=== PATIENT | female | born 1955 | race Caucasian/White ===

== ENCOUNTER 2019-06-04 14:36 | Outpatient (CLI) | payer BC ==
--- NOTE | 2019-06-04 16:15 | MRI ---
MRI cervical spine noncontrast HISTORY: Neck pain with radiculopathy on the right. FINDINGS: Vertebral body heights and alignment are maintained. Cervical spine final cord has a normal appearance without evidence of compression, expansion, or abnormal signal. Central canal and neural foramina are patent. Bone marrow signal within normal limits. 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 IMPRESSION: No significant abnormalities. No focal disc herniation or nerve root compression.
== END 2019-06-04 14:37 | disposition home or self-care (01) ==
LOC: SCSMRI 14:36
PROVIDERS: ATTEND Psychiatry & Neurology Neurology
DX: M54.12 Radiculopathy, cervical region (principal)
CPT/HCPCS: 72141

== ENCOUNTER 2020-05-29 12:18 | Outpatient (CLI) | payer MEDICARE, BC ==
[~2020-05-29 12:18] MED LIST: Iopamidol-370 76% 500 ML 1 ML ONE
--- NOTE | 2020-05-29 16:06 | CT ---
CT OF CHEST PERFORMED WITH IV CONTRAST ENHANCEMENT: Date: 05/29/2020 HISTORY: Chronic cough. Lung nodule. COMPARISON: 06/05/2016 study. FINDINGS: Lungs show some minimal reticular scarring in the bases. The subpleural nodule seen in the right lower lobe on the prior examination is not visualized on this exam. No pleural effusions. No infiltrative change. No significant mediastinal, hilar, or axillary adenopathy. Visualized liver parenchyma shows no focal findings. Right and left adrenal glands are unremarkable. IMPRESSION: 1. Some mild scarring in the lung bases. 2. The right lower lobe pulmonary nodule seen on the previous exam is not visualized on today's stud y. 3. Eventration of fat along the left hemidiaphragm again noted. POS: EUGENIA
== END 2020-05-29 12:19 | disposition home or self-care (01) ==
LOC: BICCT 12:18
PROVIDERS: ATTEND Otolaryngology Plastic Surgery within the Head & Neck
DX: R05 Cough (principal); J98.4 Other disorders of lung; R91.1 Solitary pulmonary nodule; J98.6 Disorders of diaphragm
CPT/HCPCS: 71260; 82565; Q9967

== ENCOUNTER 2020-10-06 13:25 | Observation (INO) | payer MEDICARE, BC ==
[2020-10-06] MEDS ORDERED: Adenosine 6 MG/2 ML VIAL ONE ×2 (13:32→13:33)
[2020-10-06 13:57] LABS: #Lymphocytes 2.4 thou/uL (1.20-3.40); #Monocytes 1.1 thou/uL (0.11-0.59); #Neutrophils 4.2 thou/uL (1.40-6.50); %Basophils 0.5 % (0.0-1.0); %Eosinophils 0.2 % (0.0-10.0); %Lymphocytes 30.9 % (21.0-51.0); %Monocytes 14.4 % (0.0-10.0); %Neutrophils 53.9 % (42.0-75.0); Mean Corpuscular Hemoglobin 31.5 pg (27.0-31.0); Mean Corpuscular Volume 92.8 fL (78.0-98.0); Mean Platelet Volume 7.7 fL (7.4-10.4); Platelet Count 257 thou/uL (130-400); Red Blood Cell (RBC) Count 5.06 mill/uL (4.20-5.40); White Blood Cell (WBC) Count 7.7 thou/uL (4.8-10.8)
--- NOTE | 2020-10-06 14:05 | RAD ---
XR Chest 1 View Portable History: Chest pain Comparison: None. Findings: Likely a left diaphragmatic hernia containing fat. Lungs are clear. No pneumothorax. No eff usion. Cardiac silhouette and mediastinal contours are within normal limits. Impression: No acute intrathoracic abnormality.
[2020-10-06 14:13] LABS: ALT (SGPT) 23 U/L (8-55); AST (SGOT) 27 U/L (5-34); Albumin 4.3 g/dL (3.4-4.8); Alkaline Phosphatase 108 U/L (40-110); Anion Gap 16 mmol/L (10-20); BUN (Urea Nitrogen) 10 mg/dL (9.8-20.1); Bilirubin, Total 0.6 mg/dL (0.2-1.2); Calc. Creatinine Clearance 0 mL/min (70-130); Calcium 9.3 mg/dL (7.8-10.44); Carbon Dioxide 19 mmol/L (23-31); Chloride 104 mmol/L (98-107); Globulin 2.9 g/dL (2.4-3.5); Glucose 160 mg/dL (80-115); Magnesium 2.1 mg/dL (1.6-2.6); Potassium 3.8 mmol/L (3.5-5.1); Protein, Total 7.2 g/dL (5.8-8.1); Sodium 135 mmol/L (136-145)
[2020-10-06] MEDS ORDERED: Aspirin Chewable 81 MG TAB ONE (15:02)
[2020-10-06 15:04] LABS: Bilirubin Negative (Negative); Blood, Urine Negative (Negative); Clarity Turbid (Clear); Glucose, Urine (Dipstick) Normal (Negative); Ketone, Urine 10 mg/dL (Negative); Leukocyte 500 Leu/uL (Negative); Nitrite Negative (Negative); Protein, Urine (Dipstick) Negative (Neg-Trace); RBC/HPF 0-3 HPF (0-3); Specific Gravity, Urine 1.008 (1.002-1.036); Squamous Epithelial 0-3 HPF (0-3); Urobilinogen Normal mg/dL (Less than 2); WBC/HPF Greater than 50 HPF (0-3)
[2020-10-06 15:12] LABS: Bacteria/HPF 1+ HPF (None Seen)
[2020-10-06] MEDS ORDERED: Ondansetron PF 4 MG/2 ML Vial IVP PRN (15:42)
[2020-10-06] MEDS ORDERED: Acetaminophen 325 MG TAB PO PRN (15:42)
[2020-10-06] MEDS ORDERED: Senokot S 8.6-50 MG TAB PO PRN (15:42)
[2020-10-06] MEDS ORDERED: Lidocaine 2% Viscous Solution 20 ML, Aluminum & Magnesium Hydroxide 30 ML, Donnatal Eli... SSW SCH (16:00)
[2020-10-06 16:30] LABS: Free T4 (Free Thyroxine) 1.24 ng/dL (0.70-1.48)
[2020-10-06 17:11] LABS: Troponin I 0.044 ng/mL (< 0.028)
[2020-10-06 18:10] VITALS: BMI 28.5
[2020-10-06] MEDS ORDERED: cefTRIAXone\\ROCEPHIN 1 GM in Sodium Chloride 0.9% 100 ML IVPB SCH (19:30)
[2020-10-06 20:12] LABS: Troponin I 0.051 ng/mL (< 0.028)
--- NOTE | 2020-10-06 20:37 | PDOC.HHP ---
Hospitalist HPI Palpitation History of Present Illness: Patient is a 65-year-old female with PMH of HLD, hypothyroidism, GERD, esopha geal spasm, and hx of recurrent genital herpes who presents to the ED with palpitation that started today. She reports associated lightheadedness/dizziness, and shortness of breath. Denies syncope. She is having indigestion after she took aspirin in the ED, otherwise no chest pain. No hx of arrhythmia. ED Course: Per report, on arrival to the ED patient was having SVT with HR in the 200's. Valsalva maneuver was performed, heart rate improved to 110's, the rhythm showed A. fib with RVR briefly, she then converted to sinus tachycardia spontaneously. No medication was given. Allergies/Adverse Reactions: Allergy/AdvReac Type Severity Reaction Status Date / Time NSAIDS (Non-Steroidal Allergy Mild Verified 10/06/20 18:00 Anti-Inflamma Sulfa (Sulfonamide Allergy Verified 10/06/20 18:00 Antibiotics) Home Medications: Medication Instructions Recorded Confirmed Type Atorvastatin Calcium 20 mg PO DAILY 10/06/20 10/06/20 History Cetirizine HCl [Zyrtec] 10 mg PO DAILY 10/06/20 10/06/20 History Estrogens, Conjugated [Premarin 30 gm FS Q7D 10/06/20 10/06/20 History Cream] Fluticasone Propionate 16 gm NS BID 10/06/20 10/06/20 History Ipratropium [place] 15 ml NS BID 10/06/20 10/06/20 History Lansoprazole 30 mg PO DAILY 10/06/20 10/06/20 History Levothyroxine Sodium 88 mcg PO DAILY 10/06/20 10/06/20 History [Levothyroxine] Mirabegron [Myrbetriq] 50 mg PO DAILY 10/06/20 10/06/20 History Montelukast Sodium 10 mg PO DAILY 10/06/20 10/06/20 History NIFEdipine [Nifedipine ER] 30 mg PO DAILY 10/06/20 10/06/20 History Raloxifene HCl 60 mg PO DAILY 10/06/20 10/06/20 History chlordiazePOXIDE/Clidinium Br 1 cap PO TID 10/06/20 10/06/20 History [Librax] valACYclovir HCl [ValTRex] 1 gm PO DAILY 10/06/20 10/06/20 History Past History: PMHx: HLD, hypothyroidism, GERD, esophageal spasm, and hx of recurrent genital herpes PSHx; esophageal stricture dilatation, left shoulder surgery FHx: Father: Heart disease mother: DM Social: She is a former smoker. Denies alcohol or drug use. Hospitalist HPI ROS Constitutional: denies: fever, chills Eyes: denies: vision change ENT: denies: throat pain Respiratory: reports: shortness of breath Cardiovascular: denies: chest pain Gastrointestinal: reports: nausea, other (Positive for indigestion). denies: vomiting, abdominal pain Genitourinary: denies: dysuria, frequency Skin: denies: rash Other: Positive for dizziness, negative for syncope or headache Hospitalist Exam Vitals: Vital Signs (12 hours) Temp Pulse Resp BP Pulse Ox 10/06/20 17:57 98.1 F 102 H 20 125/81 98 Weight Weight 161 lb 4.8 oz General Appearance: NAD, awake alert Eye: PERRL ENT: moist mucosa Neck: supple, no JVD Heart: no murmur Heart - other findings: Tachycardic, regular rhythm Respiratory: CTAB, no wheezes, no tachypnea Gastrointestinal: soft, non-tender, non-distended Extremities: no edema Neurological: normal sensation to touch, no weakness Musculoskeletal: normal strength Psychiatric: normal affect, A&O x 3 Hospitalist Results Result Diagrams: 10/06/20 13:40 10/06/20 13:40 Lab results: Laboratory Last Values WBC 7.7 thou/uL (4.8-10.8) 10/06/20 13:40 RBC 5.06 mill/uL (4.20-5.40) 10/06/20 13:40 Hgb 16.0 g/dL (12.0-16.0) 10/06/20 13:40 Hct 47.0 % (36.0-47.0) 10/06/20 13:40 MCV 92.8 fL (78.0-98.0) 10/06/20 13:40 MCH 31.5 pg (27.0-31.0) H 10/06/20 13:40 MCHC 34.0 g/dL (32.0-36.0) 10/06/20 13:40 RDW 12.0 % (11.5-14.5) 10/06/20 13:40 Plt Count 257 thou/uL (130-400) 10/06/20 13:40 MPV 7.7 fL (7.4-10.4) 10/06/20 13:40 Neutrophils % 53.9 % (42.0-75.0) 10/06/20 13:40 Lymphocytes % 30.9 % (21.0-51.0) 10/06/20 13:40 Monocytes % 14.4 % (0.0-10.0) H 10/06/20 13:40 Eosinophils % 0.2 % (0.0-10.0) 10/06/20 13:40 Basophils % 0.5 % (0.0-1.0) 10/06/20 13:40 Neutrophils # 4.2 thou/uL (1.40-6.50) 10/06/20 13:40 Lymphocytes # 2.4 thou/uL (1.20-3.40) 10/06/20 13:40 Monocytes # 1.1 thou/uL (0.11-0.59) H 10/06/20 13:40 Eosinophils # 0.0 thou/uL (0.0-0.7) 10/06/20 13:40 Basophils # 0.0 thou/uL (0.0-0.2) 10/06/20 13:40 D-Dimer 0.65 *mcg/mL (0.27-0.43) H 10/06/20 19:39 Sodium 135 mmol/L (136-145) L 10/06/20 13:40 Potassium 3.8 mmol/L (3.5-5.1) 10/06/20 13:40 Chloride 104 mmol/L (98-107) 10/06/20 13:40 Carbon Dioxide 19 mmol/L (23-31) L 10/06/20 13:40 Anion Gap 16 mmol/L (10-20) 10/06/20 13:40 BUN 10 mg/dL (9.8-20.1) 10/06/20 13:40 Creatinine 0.85 mg/dL (0.6-1.1) 10/06/20 13:40 Estimated GFR (MDRD) 67 10/06/20 13:40 Glucose 160 mg/dL (80-115) H 10/06/20 13:40 Calcium 9.3 mg/dL (7.8-10.44) 10/06/20 13:40 Magnesium 2.1 mg/dL (1.6-2.6) 10/06/20 13:40 Total Bilirubin 0.6 mg/dL (0.2-1.2) 10/06/20 13:40 AST 27 U/L (5-34) 10/06/20 13:40 ALT 23 U/L (8-55) 10/06/20 13:40 Alkaline Phosphatase 108 U/L (40-110) 10/06/20 13:40 Troponin I 0.051 ng/mL (< 0.028) H 10/06/20 19:39 Serum Total Protein 7.2 g/dL (5.8-8.1) 10/06/20 13:40 Albumin 4.3 g/dL (3.4-4.8) 10/06/20 13:40 Globulin 2.9 g/dL (2.4-3.5) 10/06/20 13:40 Albumin/Globulin Ratio 1.5 g/dL (1.2-2.2) 10/06/20 13:40 Free T4 1.24 ng/dL (0.70-1.48) 10/06/20 13:40 Free T3 2.03 pg/mL (1.71-3.71) 10/06/20 13:40 TSH 3rd Generation 0.9036 uIU/mL (0.35-4.94) 10/06/20 13:40 Urine Color Light-Yellow (Yellow) 10/06/20 14:45 Urine Clarity Turbid (Clear) A 10/06/20 14:45 Urine pH 6.0 (5.0-9.0) 10/06/20 14:45 Ur Specific [place] 1.008 (1.002-1.036) 10/06/20 14:45 Urine Protein Negative mg/dL (Neg-Trace) 10/06/20 14:45 Urine Glucose (UA) Normal mg/dL (Negative) 10/06/20 14:45 Urine Ketones 10 mg/dL (Negative) A 10/06/20 14:45 Urine Blood Negative (Negative) 10/06/20 14:45 Urine Nitrite Negative (Negative) 10/06/20 14:45 Urine Bilirubin Negative (Negative) 10/06/20 14:45 Urine Urobilinogen Normal mg/dL (Less than 2) 10/06/20 14:45 Ur Leukocyte Esterase 500 Mahnaz/uL (Negative) A 10/06/20 14:45 Urine RBC 0-3 HPF (0-3) 10/06/20 14:45 Urine WBC Greater than 50 HPF (0-3) A 10/06/20 14:45 Ur Squamous Epith Cells 0-3 HPF (0-3) 10/06/20 14:45 Urine Bacteria 1+ HPF (None Seen) A 10/06/20 14:45 Chest x-ray Status: image reviewed by me EKG Status: image reviewed by me Additional Comments: Sinus tachycardia with PVCs, RBBB. Vent rate: 122. Hospitalist H&P A/P (1) SVT (supraventricular tachycardia) Code(s): I47.1 - SUPRAVENTRICULAR TACHYCARDIA Status: Acute Assessment and Plan: Patient had an episode of SVT, resolved with Valsalva maneuver. She also had A fib rvr briefly, she then converted to Sinus tach. During my evaluation, HR was trending in the low 100's. D-dimer elevated. Free T4 and free T3 levels normal. Plan: -monitor on telemetry overnight -CTA chest -Echo (2) Elevated troponin Code(s): R77.8 - OTHER SPECIFIED ABNORMALITIES OF PLASMA PROTEINS Status: Acute Assessment and Plan: likely from demand ischemia due to tachycardia. Plan: -trend troponin (3) UTI (urinary tract infection) Status: Acute Qualifiers: Urinary tract infection type: acute cystitis Assessment and Plan: patient denies symptoms of UTI. Plan: -a dose of Ceftriaxone given -f/u urine Cx (4) Hypothyroidism Code(s): E03.9 - HYPOTHYROIDISM, UNSPECIFIED Status: Chronic Assessment and Plan: TSH, free T3 and free T4 normal PLan: -cont home meds (5) HLD (hyperlipidemia) Code(s): E78.5 - HYPERLIPIDEMIA, UNSPECIFIED Status: Chronic Assessment and Plan: -cont home med
[2020-10-06] MEDS ORDERED: ALPRAZolam 0.25 MG TAB PO SCH (21:00)
[2020-10-06] MEDS ORDERED: chlordiazePOXIDE/Clidinium Bromide Capsule PO SCH (21:00)
[2020-10-06] MEDS ORDERED: Atorvastatin Calcium 20 MG TAB PO SCH (21:00)
--- NOTE | 2020-10-06 21:14 | CT ---
Exam: CT angiogram of the chest HISTORY: Tachycardia. Elevated d-dimer. Atrial fibrillation. COMPARISON: CT angiogram of the aorta 06/05/2016 TECHNIQUE: CT angiogram of the chest is performed in the axial plane. Three-dimensional reformatted i mages are submitted for interpretation FINDINGS: Mediastinum: No mass, lymphadenopathy or hematoma. HEART: Normal size. No significant pericardial fluid. Aorta: Limited evaluation the aorta due to timing of contrast bolus. No evidence of dilatation. Upper solid abdominal viscera: No abnormality enhancement. Trachea and central bronchi: Patent Pleural spaces: No pleural effusion. 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 Lung parenchyma: Emphysematous changes are noted. There is irregular marginated semisolid nodule in t he posterior right upper lobe measuring 0.5 cm. Nodule is not present on the previous examination. Previously noted 0.8 x 0.5 cm nodule along the superior segment of the right lower lobe is not apprec iated. Regional smaller nodules are noted in the superior posterior right upper lobe. No suspicious or new nodules in the left lung. Pneumothorax: None Osseous structures: No lytic or blastic lesions Pulmonary arteries: Adequate contrast opacification pulmonary arterial system to the level of segment al arteries. No filling defect to suggest pulmonary embolism Incidentals: Enlarged left axillary lymph nodes. It Engineer lymph node measures 1.4 x 1.7 cm. IMPRESSION: 1. No evidence of pulmonary artery embolism to the level segmental arteries 2. Interval development of new nodules in the posterior superior right upper lobe. There is a semisol id slightly irregular nodule present, not appreciated on the prior exam. 3. Interval development of mildly enlarged left axillary lymph nodes. Code lung nodule
[2020-10-06] MEDS ORDERED: NIFEdipine XL 30 MG TAB PO SCH (21:30)
[2020-10-07 04:26] LABS: Hemoglobin A1c 5.5 % (4.0-6.0)
[2020-10-07 04:41] LABS: Anion Gap 14 mmol/L (10-20); BUN (Urea Nitrogen) 11 mg/dL (9.8-20.1); Calc. Creatinine Clearance 89 mL/min (70-130); Calcium 8.6 mg/dL (7.8-10.44); Carbon Dioxide 20 mmol/L (23-31); Chloride 108 mmol/L (98-107); Glucose 109 mg/dL (80-115); Magnesium 2.1 mg/dL (1.6-2.6); Potassium 3.8 mmol/L (3.5-5.1); Sodium 138 mmol/L (136-145)
[2020-10-07 05:48] LABS: Band 11 % (5-11); Eosinophils 1 % (0-10); Hemoglobin 13.9 g/dL (12.0-16.0); Lymphocytes 37 % (21-51); MDiff Complete? YES; Mean Corpuscular HGB CONC 33.5 g/dL (32.0-36.0); Mean Corpuscular Hemoglobin 31.3 pg (27.0-31.0); Mean Corpuscular Volume 93.3 fL (78.0-98.0); Mean Platelet Volume 8.5 fL (7.4-10.4); Monocytes 15 % (0-10); Myelocyte 1 % (0-0); Neutrophil 29 % (42-75); Platelet Count 218 thou/uL (130-400); RBC Distribution Width 12.1 % (11.5-14.5); Reactive Lymphocytes 6 % (0-10); Red Blood Cell (RBC) Count 4.43 mill/uL (4.20-5.40)
[2020-10-07] MEDS ORDERED: Levothyroxine Sodium 88 MCG TAB PO SCH (06:00)
[2020-10-07] MEDS ORDERED: chlordiazePOXIDE/Clidinium Bromide Capsule PO PRN (07:42)
[2020-10-07] MEDS ORDERED: Metoprolol Tartrate 25 MG TAB PO SCH (09:00)
[2020-10-07] MEDS ORDERED: NIFEdipine XL 30 MG TAB PO SCH (09:00)
[2020-10-07] MEDS ORDERED: FLU VACC QS2020-21(65YR UP)/PF 240 MCG/0.7 ML SYRINGE IM ONE (09:00)
--- NOTE | 2020-10-07 09:32 | PDOC.HOSPP ---
- Subjective Encounter Date: 10/07/20 - Objective Vital Signs & Weight: Vital Signs (12 hours) Temp Pulse Resp BP Pulse Ox 10/07/20 08:35 98.1 F 99 16 116/78 96 10/07/20 04:00 97.8 F 98 16 108/72 96 10/06/20 22:15 97.7 F 100 20 157/82 H 94 L Weight Weight 161 lb 4.8 oz I&O: 10/06/20 10/07/20 10/08/20 06:59 06:59 06:59 Intake Total 1100 Output Total 1000 Balance 100 Result Diagrams: 10/07/20 03:33 10/07/20 03:33 Hospitalist ROS - Medication Medications: Active Medications Generic Name Dose Route Start Last Admin Trade Name Freq PRN Reason Stop Dose Admin Atorvastatin Calcium 20 mg 10/06/20 21:00 10/06/20 22:11 Atorvastatin Calcium 20 Mg Tab PO 20 mg HS DOMENICO Administration Chlordiazepoxide/Clidinium 1 cap 10/07/20 07:42 10/07/20 08:41 Chlordiazepoxide/Clidinium [place] Capsule PO 1 cap TIDPRN PRN Administration Agitation Levothyroxine Sodium 88 mcg 10/07/20 06:00 10/07/20 05:23 Levothyroxine Sodium 88 Mcg Tab PO 88 mcg 0600 DOMENICO Administration Metoprolol Tartrate 25 mg 10/07/20 09:00 10/07/20 08:40 Metoprolol Tartrate 25 Mg Tab PO 25 mg BID DOMENICO Administration Nifedipine 30 mg 10/07/20 09:00 10/07/20 08:40 Nifedipine Xl 30 Mg Tab PO Not Given DAILY DOMENICO Pantoprazole Sodium 40 mg 10/07/20 09:00 10/07/20 08:40 Pantoprazole 40 Mg Tab PO 40 mg DAILY DOMENICO Administration Hospitalist Exam Vitals: Vital Signs (12 hours) Temp Pulse Resp BP Pulse Ox 10/07/20 08:35 98.1 F 99 16 116/78 96 10/07/20 04:00 97.8 F 98 16 108/72 96 10/06/20 22:15 97.7 F 100 20 157/82 H 94 L Weight Weight 161 lb 4.8 oz Hosp A/P - Plan Hospitalist H&P A/P (1) SVT (supraventricular tachycardia) Code(s): I47.1 - SUPRAVENTRICULAR TACHYCARDIA Status: Acute Assessment and Plan: Patient had an episode of SVT, resolved with Valsalva maneuver. She also had A fib rvr briefly, she then converted to Sinus tach. During my evaluation, HR was trending in the low 100's. D-dimer elevated. Free T4 and free T3 levels normal. Plan: -monitor on telemetry overnight -CTA chest -Echo (2) Elevated troponin Code(s): R77.8 - OTHER SPECIFIED ABNORMALITIES OF PLASMA PROTEINS Status: Acute Assessment and Plan: likely from demand ischemia due to tachycardia. Plan: -trend troponin (3) UTI (urinary tract infection) Status: Acute Qualifiers: Urinary tract infection type: acute cystitis Assessment and Plan: patient denies symptoms of UTI. Plan: -a dose of Ceftriaxone given -f/u urine Cx (4) Hypothyroidism Code(s): E03.9 - HYPOTHYROIDISM, UNSPECIFIED Status: Chronic Assessment and Plan: TSH, free T3 and free T4 normal PLan: -cont home meds (5) HLD (hyperlipidemia) Code(s): E78.5 - HYPERLIPIDEMIA, UNSPECIFIED Status: Chronic Assessment and Plan: -cont home med
[2020-10-07 09:37] LABS: SARS-CoV-2 PCR by NAA Not Detected (NotDetected)
--- NOTE | 2020-10-07 10:02 | PDOC.DS.DS ---
Provider Date of Admission: 10/06/20 15:08 Date of Discharge: 10/07/20 Admitting Provider: Deny Vickers MD Primary Care Physician: Alistair Trent MD Course Hospital Course: History of Present Illness: Patient is a 65-year-old female with PMH of HLD, hypothyroidism, GERD, esophageal spasm, and hx of recurrent genital herpes who presents to the ED with palpitation that started today. She reports associated lighthead edness/dizziness, and shortness of breath. Denies syncope. She is having indigestion after she took aspirin in the ED, otherwise no chest pain. No hx of arrhythmia. ED Course: Per report, on arrival to the ED patient was having SVT with HR in the 200's. Valsalva maneuver was performed, heart rate improved to 110's, the rhythm showed A. fib with RVR briefly, she then converted to sinus tachycardia spontaneously. No medication was given. The patient was observed overnight with no recurrence of her arrhythmia. She was started on metoprolol titrate 25 mg orally twice daily. Echocardiogram revealed preserved EF with mild diastolic dysfunction. Her case was discussed with cardiology and they recommended outpatient follow-up with EP within 1 to 2 weeks. The patient is urine analysis was suggestive of UTI, however the patient was asymptomatic. She received ceftriaxone in the ER but no antibiotics will be prescribed on discharge as the patient is asymptomatic and without signs of sepsis. This is likely represent asymptomatic bacteriuria. Resuscitation Status: 10/06/20 15:42 Resuscitation Status Routine Resuscitation Status: FULL: Full Resuscitation Discussed with: patient Lab Results: 10/07/20 03:33 10/07/20 03:33 Abnormal Lab Results - Last 48 hrs 10/06/20 13:40: MCH 31.5 H, Monocytes % 14.4 H, Monocytes # 1.1 H 10/06/20 13:40: Sodium 135 L, Carbon Dioxide 19 L 10/06/20 14:45: Urine Clarity Turbid A, Urine Ketones 10 A, Ur Leukocyte Esterase 500 A, Urine WBC Greater than 50 A, Urine Bacteria 1+ A 10/06/20 16:38: Troponin I 0.044 H 10/06/20 19:39: Troponin I 0.051 H 10/06/20 19:39: D-Dimer 0.65 H 10/07/20 03:33: Chloride 108 H, Carbon Dioxide 20 L 10/07/20 03:33: MCH 31.3 H, Neutrophils % (Manual) 29 L, Monocytes % (Manual) 15 H, Myelocytes % 1 H Microbiology - Entire Visit 10/06/20 14:45 Urine voided Urine Culture - Preliminary Vitals: Vital Signs (12 hours) Temp Pulse Resp BP Pulse Ox 10/07/20 08:35 98.1 F 99 16 116/78 96 10/07/20 04:00 97.8 F 98 16 108/72 96 10/06/20 22:15 97.7 F 100 20 157/82 H 94 L Weight Weight 161 lb 4.8 oz Physical Exam: The patient was seen and examined on the day of discharge. Problem (1) Elevated troponin Code(s): R77.8 - OTHER SPECIFIED ABNORMALITIES OF PLASMA PROTEINS Status: Acute Plan: This is likely due to demand ischemia from her SVT episode. (2) SVT (supraventricular tachycardia) Code(s): I47.1 - SUPRAVENTRICULAR TACHYCARDIA Status: Acute (3) UTI (urinary tract infection) Status: Acute Qualifiers: Urinary tract infection type: acute cystitis Plan: Asymptomatic. (4) HLD (hyperlipidemia) Code(s): E78.5 - HYPERLIPIDEMIA, UNSPECIFIED Status: Chronic (5) Hypothyroidism Code(s): E03.9 - HYPOTHYROIDISM, UNSPECIFIED Status: Chronic Plan Prescriptions: Metoprolol Tartrate 25 mg PO BID #60 tab Home Medications: Medication Instructions Recorded Confirmed Type Atorvastatin Calcium 20 mg PO DAILY 10/06/20 10/06/20 History Cetirizine HCl [Zyrtec] 10 mg PO DAILY 10/06/20 10/06/20 History Estrogens, Conjugated [Premarin 30 gm FS Q7D 10/06/20 10/06/20 History Cream] Fluticasone Propionate 16 gm NS BID 10/06/20 10/06/20 History Ipratropium [place] 15 ml NS BID 10/06/20 10/06/20 History Lansoprazole 30 mg PO DAILY 10/06/20 10/06/20 History Levothyroxine Sodium 88 mcg PO DAILY 10/06/20 10/06/20 History [Levothyroxine] Mirabegron [Myrbetriq] 50 mg PO DAILY 10/06/20 10/06/20 History Montelukast Sodium 10 mg PO DAILY 10/06/20 10/06/20 History NIFEdipine [Nifedipine ER] 30 mg PO DAILY 10/06/20 10/06/20 History Raloxifene HCl 60 mg PO DAILY 10/06/20 10/06/20 History chlordiazePOXIDE/Clidinium Br 1 cap PO TID 10/06/20 10/06/20 History [Librax] valACYclovir HCl [Valtrex] 1 gm PO DAILY 10/06/20 10/06/20 History Metoprolol Tartrate 25 mg PO BID #60 tab 10/07/20 Rx Allergies: NSAIDS (Non-Steroidal Anti-Inflamma Allergy (Mild, Verified 10/06/20 18:00) INDIGESTION Sulfa (Sulfonamide Antibiotics) Allergy (Verified 10/06/20 18:00) Activity:: Activity as Tolerated Referrals: Alistair Trent MD [Primary Care Provider] - 7 Days (CALL OFFICE TO SCHEDULE APPOINTMENT) Philip Nolasco MD [Active] - 2-3 Weeks (CALL OFFICE TO SCHEDULE APPOINTMENT TO ESTABLISH CARE) Disposition: HOME Quality CORE MEASURES:: N/A
[2020-10-07 11:54] VITALS: BP 108/72; TEMP 98.3
[2020-10-07] MEDS ORDERED: cefTRIAXone\\ROCEPHIN 1 GM in Sodium Chloride 0.9% 100 ML IVPB SCH (21:00)
[2020-10-08] MEDS ORDERED: Levothyroxine Sodium 88 MCG TAB PO SCH (06:00)
== END 2020-10-07 15:05 | disposition home or self-care (01) ==
LOC: ERS 13:25 → 2NO 15:08
PROVIDERS: ADMIT Internal Medicine; ATTEND Internal Medicine
DX: R00.2 Palpitations (principal); R77.8 Other specified abnormalities of plasma proteins; I47.1 Supraventricular tachycardia; N30.00 Acute cystitis without hematuria; E78.5 Hyperlipidemia, unspecified; E03.9 Hypothyroidism, unspecified; F41.9 Anxiety disorder, unspecified; G47.00 Insomnia, unspecified; K21.9 Gastro-esophageal reflux disease without esophagitis; E78.00 Pure hypercholesterolemia, unspecified; Z87.891 Personal history of nicotine dependence; Z79.810 Long term (current) use of selective estrogen receptor modulators (SERMs); Z79.899 Other long term (current) drug therapy; Z88.2 Allergy status to sulfonamides; Z88.6 Allergy status to analgesic agent; Z20.822 Contact with and (suspected) exposure to COVID-19
CPT/HCPCS: 71045; 71275; 80048; 83036; 83735 ×2; 84439; 84481; 84484 ×2; 85025; 85379; 87086; 93005; 93306; 99285; U0003; U0005; 36415; 36416; 80053; 81003; 81015; 84443; 87635; 96374; G0378; J0153; J0696; J3490; Q9967

== ENCOUNTER 2020-10-17 14:48 | Outpatient (CLI) | payer MEDICARE, BC | END 2020-10-17 14:49 | disposition home or self-care (01) | LOC: BICMAMMO 14:48 | PROVIDERS: ATTEND Family Medicine | DX: Z12.31 Encounter for screening mammogram for malignant neoplasm of breast (principal); M85.89 Other specified disorders of bone density and structure, multiple sites; Z91.89 Other specified personal risk factors, not elsewhere classified; Z80.3 Family history of malignant neoplasm of breast | CPT/HCPCS: 77063; 77067; 77080 ==

== ENCOUNTER 2020-11-13 14:58 | Outpatient (CLI) | payer MEDICARE, BC ==
[2020-11-13 16:31] LABS: Hemoglobin 15.1 g/dL (12.0-15.5); Mean Corpuscular HGB CONC 33.5 g/dL (32.0-36.0); Mean Corpuscular Hemoglobin 31.3 pg (27.0-33.0); Mean Corpuscular Volume 93.4 fl (81.6-98.3); Mean Platelet Volume 10.3 fl (7.4-10.4); Platelet Count 324 10x3/uL (150-450); Red Blood Cell (RBC) Count 4.83 10x6/uL (3.90-5.03); White Blood Cell (WBC) Count 7.9 10x3/uL (3.5-10.5)
[2020-11-13 16:50] LABS: Anion Gap 16 mmol/L (10-20); BUN (Urea Nitrogen) 11 mg/dL (9.8-20.1); Calc. Creatinine Clearance 0 mL/min (70-130); Calcium 9.8 mg/dL (7.8-10.44); Carbon Dioxide 25 mmol/L (23-31); Chloride 104 mmol/L (98-107); Glucose 115 mg/dL (80-115); Potassium 4.5 mmol/L (3.5-5.1); Sodium 140 mmol/L (136-145)
[2020-11-13 17:03] LABS: Prothrombin Time 10.9 sec (9.5-12.1)
[2020-11-14 04:20] LABS: SARS-CoV-2 PCR by NAA Not Detected (NotDetected)
== END 2020-11-13 14:59 | disposition home or self-care (01) ==
LOC: LABBT 14:58
PROVIDERS: ATTEND Internal Medicine Cardiovascular Disease
DX: Z01.812 Encounter for preprocedural laboratory examination (principal); I47.1 Supraventricular tachycardia; Z20.822 Contact with and (suspected) exposure to COVID-19
CPT/HCPCS: 80048; 85027; 85610; U0003; U0005; 87635

== ENCOUNTER 2020-11-16 06:20 | Day surgery (SDC) | payer MEDICARE, BC ==
[2020-11-15 14:31] VITALS: BMI 28.3
[2020-11-16] MEDS ORDERED: Heparin 10,000 UNITS/ 10 ML VIAL ONE (06:39)
[2020-11-16] MEDS ORDERED: Lidocaine 1% (PF) 30 ML VIAL ONE (06:40)
[2020-11-16] MEDS ORDERED: Fentanyl 100 MCG/2 ML VIAL ONE ×2 (06:50→10:34)
[2020-11-16] MEDS ORDERED: Midazolam HCl 2 mg/2 ml Vial ONE (06:50)
[2020-11-16] MEDS ORDERED: Ketamine 50 MG/ML (10ML VIAL) ONE (06:51)
[2020-11-16] MEDS ORDERED: Propofol 500 MG/50 ML VIAL ONE (06:51)
[2020-11-16] MEDS ORDERED: PROPOFOL 200 MG/20 ML VIAL ONE (07:08)
[2020-11-16] MEDS ORDERED: Phenylephrine 10 MG/ML VIAL ONE (07:11)
[2020-11-16] MEDS ORDERED: Propofol 1,000 MG/100 ML VIAL IV ONE (08:09)
[2020-11-16] MEDS ORDERED: Isoproterenol 0.2 MG/1 ML AMP ONE (08:32)
== END 2020-11-16 14:26 | disposition home or self-care (01) ==
LOC: CCL 06:20
PROVIDERS: ATTEND Internal Medicine Cardiovascular Disease
PROC: 02583ZZ Destruction of Conduction Mechanism, Percutaneous Approach (ICD-10-PCS; principal; 2020-11-16)
PROC: 02K83ZZ Map Conduction Mechanism, Percutaneous Approach (ICD-10-PCS; 2020-11-16)
PROC: 4A023FZ Measurement of Cardiac Rhythm, Percutaneous Approach (ICD-10-PCS; 2020-11-16)
PROC: 4A0234Z Measurement of Cardiac Electrical Activity, Percutaneous Approach (ICD-10-PCS; 2020-11-16)
DX: I47.1 Supraventricular tachycardia (principal); I48.3 Typical atrial flutter; I48.0 Paroxysmal atrial fibrillation; I45.10 Unspecified right bundle-branch block; E03.9 Hypothyroidism, unspecified; E78.5 Hyperlipidemia, unspecified; K21.9 Gastro-esophageal reflux disease without esophagitis; Z87.891 Personal history of nicotine dependence; Z79.899 Other long term (current) drug therapy; Z88.2 Allergy status to sulfonamides; Z88.6 Allergy status to analgesic agent
CPT/HCPCS: 76942; 93005; 93613; 93621; 93623; 93653; 93655; C1730; C1731; C2630; J1644; J2001; J2250; J2370; J2704; J3010

== ENCOUNTER 2021-08-18 11:27 | Emergency (ER) | payer MEDICARE, BC ==
[2021-08-18] MEDS ORDERED: Aspirin Chewable 81 MG TAB ONE (11:51)
[2021-08-18] MEDS ORDERED: Nitroglycerin 0.4 MG TAB 1 EACH ONE (11:51)
[2021-08-18 11:58] LABS: #Basophils 0.1 thou/uL (0.0-0.2); #Eosinphils 0.1 thou/uL (0.0-0.7); #Lymphocytes 3.4 thou/uL (1.20-3.40); #Monocytes 0.6 thou/uL (0.11-0.59); #Neutrophils 3.7 thou/uL (1.40-6.50); %Basophils 0.6 % (0.0-1.0); %Eosinophils 1.5 % (0.0-10.0); %Lymphocytes 42.7 % (21.0-51.0); %Monocytes 8.2 % (0.0-10.0); %Neutrophils 47.1 % (42.0-75.0); Hemoglobin 15.2 g/dL (12.0-16.0); Mean Corpuscular HGB CONC 34.9 g/dL (32.0-36.0); Mean Corpuscular Volume 97.2 fL (78.0-98.0); Mean Platelet Volume 7.4 fL (7.4-10.4); Platelet Count 344 thou/uL (130-400); RBC Distribution Width 11.8 % (11.5-14.5); Red Blood Cell (RBC) Count 4.49 mill/uL (4.20-5.40); White Blood Cell (WBC) Count 7.9 thou/uL (4.8-10.8)
[2021-08-18 12:32] LABS: ALT (SGPT) 19 U/L (8-55); AST (SGOT) 36 U/L (5-34); Albumin 4.2 g/dL (3.4-4.8); Alkaline Phosphatase 102 U/L (40-110); Anion Gap 15 mmol/L (10-20); BUN (Urea Nitrogen) 9 mg/dL (9.8-20.1); Bilirubin, Total 0.5 mg/dL (0.2-1.2); Calc. Creatinine Clearance 0 mL/min (70-130); Carbon Dioxide 21 mmol/L (23-31); Chloride 106 mmol/L (98-107); Globulin 3.7 g/dL (2.4-3.5); Glucose 106 mg/dL (80-115); Protein, Total 7.9 g/dL (5.8-8.1); Sodium 136 mmol/L (136-145)
[2021-08-18 13:36] LABS: ALT (SGPT) 12 U/L (8-55); AST (SGOT) 16 U/L (5-34); Albumin 3.9 g/dL (3.4-4.8); Alkaline Phosphatase 92 U/L (40-110); Anion Gap 12 mmol/L (10-20); BUN (Urea Nitrogen) 9 mg/dL (9.8-20.1); Bilirubin, Total 0.5 mg/dL (0.2-1.2); Calc. Creatinine Clearance 0 mL/min (70-130); Calcium 9.3 mg/dL (7.8-10.44); Carbon Dioxide 22 mmol/L (23-31); Chloride 110 mmol/L (98-107); Globulin 2.6 g/dL (2.4-3.5); Glucose 96 mg/dL (80-115); Potassium 3.6 mmol/L (3.5-5.1); Protein, Total 6.5 g/dL (5.8-8.1); Sodium 140 mmol/L (136-145)
[2021-08-18] MEDS ORDERED: Albuterol Sulfate 2.5 mg/0.5 ml Neb ONE (14:02)
[2021-08-18 14:18] LABS: Magnesium 1.9 mg/dL (1.6-2.6)
== END 2021-08-18 15:52 | disposition home or self-care (01) ==
LOC: ERS 11:27
DX: R07.89 Other chest pain (principal); E03.9 Hypothyroidism, unspecified; E78.00 Pure hypercholesterolemia, unspecified; I48.91 Unspecified atrial fibrillation; Z79.899 Other long term (current) drug therapy
CPT/HCPCS: 36415; 71045; 80053; 83735; 84484; 85025; 93005; 94760; J7611

== ENCOUNTER 2022-05-07 08:39 | Outpatient (CLI) | payer MEDICARE, BC | END 2022-05-07 08:40 | disposition home or self-care (01) | LOC: BICMAMMO 08:39 | PROVIDERS: ATTEND Family Medicine | DX: Z12.31 Encounter for screening mammogram for malignant neoplasm of breast (principal); Z80.3 Family history of malignant neoplasm of breast; Z91.89 Other specified personal risk factors, not elsewhere classified | CPT/HCPCS: 77063; 77067 ==

== ENCOUNTER 2023-06-25 12:47 | Outpatient (CLI) | payer MEDICARE, BC | END 2023-06-25 12:48 | disposition home or self-care (01) | LOC: BICMAMMO 12:47 | PROVIDERS: ATTEND Family Medicine | DX: Z12.31 Encounter for screening mammogram for malignant neoplasm of breast (principal); Z80.3 Family history of malignant neoplasm of breast; Z91.89 Other specified personal risk factors, not elsewhere classified | CPT/HCPCS: 77063; 77067 ==

== ENCOUNTER 2023-09-18 13:43 | Outpatient (CLI) | payer MEDICARE | END 2023-09-18 13:44 | disposition home or self-care (01) | LOC: BICMAMMO 13:43 | PROVIDERS: ATTEND Family Medicine | DX: Z13.820 Encounter for screening for osteoporosis (principal); N95.9 Unspecified menopausal and perimenopausal disorder; M81.0 Age-related osteoporosis without current pathological fracture; M85.851 Other specified disorders of bone density and structure, right thigh; M85.852 Other specified disorders of bone density and structure, left thigh | CPT/HCPCS: 77080 ==

== ENCOUNTER 2024-04-15 18:48 | Observation (INO) | payer BC, MEDICARE ==
[2024-04-15] MEDS ORDERED: Aspirin Chewable 81 MG TAB ONE (19:42)
[2024-04-15 20:04] LABS: #Basophils Less than 0.03 10x3/uL (0.0-0.2); %Basophils 0.2 % (0.0-1.0); %Eosinophils 0.7 % (0.0-10.0); %Lymphocytes 31.8 % (21.0-51.0); %Neutrophils 57.1 % (42.0-75.0); Hematocrit 40.2 % (36.0-47.0); Hemoglobin 14.1 g/dL (12.0-16.0); Mean Corpuscular HGB CONC 35.1 g/dL (32.0-36.0); Mean Corpuscular Volume 91.4 fL (78.0-98.0); Mean Platelet Volume 10.1 fL (7.4-10.4); Platelet Count 287 10x3/uL (130-400); RBC Distribution Width 12.5 % (11.5-14.5)
[2024-04-15 20:22] LABS: ALT (SGPT) 14 U/L (8-55); AST (SGOT) 19 U/L (5-34); Albumin 3.6 g/dL (3.4-4.8); Alkaline Phosphatase 76 U/L (40-110); Anion Gap 14 mmol/L (10-20); BUN (Urea Nitrogen) 12 mg/dL (9.8-20.1); Bilirubin, Total 0.4 mg/dL (0.2-1.2); Calc. Creatinine Clearance 0 mL/min (70-130); Calcium 9.7 mg/dL (7.8-10.44); Carbon Dioxide 25 mmol/L (23-31); Chloride 105 mmol/L (98-107); Estimated GFR 95; Globulin 2.9 g/dL (2.4-3.5); Glucose 92 mg/dL (80-115); Lipase 27 U/L (8-78); Potassium 4.5 mmol/L (3.5-5.1); Protein, Total 6.5 g/dL (5.8-8.1); Sodium 139 mmol/L (136-145)
[2024-04-15 20:26] LABS: Troponin I Less than 0.010 ng/mL (< 0.028)
[2024-04-15] MEDS ORDERED: Lorazepam 1 MG TAB ONE (23:04)
[2024-04-15 23:52] LABS: Troponin I 0.011 ng/mL (< 0.028)
[2024-04-16 00:46] VITALS: BMI 20.4
[2024-04-16] MEDS ORDERED: Acetaminophen 650 MG Suppository PR PRN (01:20)
[2024-04-16] MEDS ORDERED: Acetaminophen 325 MG TAB PO PRN (01:20)
[2024-04-16] MEDS ORDERED: Ondansetron ODT 4 MG TAB PO PRN (01:20)
[2024-04-16] MEDS ORDERED: Ondansetron PF 4 MG/2 ML Vial IVP PRN (01:20)
[2024-04-16] MEDS ORDERED: Nitroglycerin 0.4 MG TAB (25 Tab Bottle) SL PRN (01:22)
[2024-04-16] MEDS: Calcium Carbonate 500 MG ChewTAB PO SCH (01:45)
[2024-04-16] MEDS: Pantoprazole 40 MG VIAL IVP SCH ×2 (01:45→08:07)
[2024-04-16 02:49] LABS: #Basophils Less than 0.03 10x3/uL (0.0-0.2); %Basophils 0.2 % (0.0-1.0); %Eosinophils 0.6 % (0.0-10.0); %Lymphocytes 35.4 % (21.0-51.0); %Monocytes 10.1 % (0.0-10.0); %Neutrophils 53.4 % (42.0-75.0); Hematocrit 41.6 % (36.0-47.0); Mean Corpuscular HGB CONC 33.7 g/dL (32.0-36.0); Mean Corpuscular Hemoglobin 32.4 pg (27.0-31.0); Mean Corpuscular Volume 96.3 fL (78.0-98.0); Platelet Count 265 10x3/uL (130-400); RBC Distribution Width 12.6 % (11.5-14.5); Red Blood Cell (RBC) Count 4.32 mill/uL (4.20-5.40)
[2024-04-16 04:14] LABS: Anion Gap 18 mmol/L (10-20); BUN (Urea Nitrogen) 12 mg/dL (9.8-20.1); Calc. Creatinine Clearance 67 mL/min (70-130); Calcium 9.5 mg/dL (7.8-10.44); Carbon Dioxide 15 mmol/L (23-31); Chloride 109 mmol/L (98-107); Estimated GFR 96; Glucose 81 mg/dL (80-115); Sodium 138 mmol/L (136-145)
[2024-04-16 04:23] LABS: Troponin I Less than 0.010 ng/mL (< 0.028)
[2024-04-16] MEDS: Aspirin Chewable 81 MG TAB PO SCH (08:06)
[2024-04-16] MEDS: Raloxifene 60 MG TAB PO SCH (08:17)
[2024-04-16] MEDS: Loratadine 10 MG TAB PO SCH (08:17)
[2024-04-16] MEDS: Levothyroxine Sodium 88 MCG TAB PO SCH (08:19)
[2024-04-16] MEDS: valACYclovir 500 MG TAB PO SCH (08:23)
[2024-04-16] MEDS ORDERED: Ipratropium Bromide 0.06% Nasal Inhaler 15ml EA NARE SCH (09:00)
[2024-04-16] MEDS ORDERED: Fluticasone Propionate Nasal Spray 16 gm Bottle NASAL SCH (09:00)
[2024-04-16] MEDS ORDERED: valACYclovir 500 MG TAB PO SCH (09:00)
[2024-04-16 09:20] VITALS: TEMP 97.2
[2024-04-16 09:37] VITALS: BP 93/63
[2024-04-16] MEDS ORDERED: Regadenoson 0.4 MG/5 ML SYRINGE ONE (11:06)
[2024-04-16] MEDS ORDERED: Atorvastatin Calcium 20 MG TAB PO SCH (21:00)
[2024-04-16] MEDS ORDERED: traZODone HCl 50 MG TAB PO SCH (21:00)
[2024-04-17] MEDS ORDERED: Levothyroxine Sodium 88 MCG TAB PO SCH (06:00)
== END 2024-04-16 15:51 | disposition home or self-care (01) ==
LOC: ERS 18:48 → 2SW 22:43
PROVIDERS: ADMIT Student in an Organized Health Care Education/Training Program; ATTEND Internal Medicine
PROC: B246ZZZ Ultrasonography of Right and Left Heart (ICD-10-PCS; principal; 2024-04-15)
DX: R07.89 Other chest pain (principal); I50.30 Unspecified diastolic (congestive) heart failure; E78.2 Mixed hyperlipidemia; E03.9 Hypothyroidism, unspecified; K21.9 Gastro-esophageal reflux disease without esophagitis; I48.91 Unspecified atrial fibrillation; Z88.2 Allergy status to sulfonamides; Z88.6 Allergy status to analgesic agent; Z79.890 Hormone replacement therapy; Z79.899 Other long term (current) drug therapy; Z79.82 Long term (current) use of aspirin
CPT/HCPCS: 71045; 78452; 80048; 80053; 83690; 83880; 84484 ×3; 85025 ×2; 85379; 93005; 93017; 93306; 94760; 99285; A9502; J2470; J2785 ×2; 36415; 96374; 96376; G0378

== ENCOUNTER 2024-06-29 11:10 | Outpatient (CLI) | payer MEDICARE | END 2024-06-29 11:11 | disposition home or self-care (01) | LOC: BICMAMMO 11:10 | PROVIDERS: ATTEND Family Medicine | DX: Z12.31 Encounter for screening mammogram for malignant neoplasm of breast (principal); Z80.3 Family history of malignant neoplasm of breast; Z91.89 Other specified personal risk factors, not elsewhere classified | CPT/HCPCS: 77063; 77067 ==

== ENCOUNTER 2024-07-22 17:47 | Observation (INO) | payer MEDICARE ==
[2024-07-22] MEDS ORDERED: Acetaminophen 500 MG TAB ONE (18:14)
[2024-07-22] MEDS ORDERED: Aspirin Chewable 81 MG TAB ONE (18:15)
[2024-07-22] MEDS ORDERED: Heparin 10,000 UNITS/ 10 ML VIAL ONE (18:35)
[2024-07-22] MEDS ORDERED: EPINEPHrine 1 MG/10 ML Abboject SYRINGE ONE (18:35)
[2024-07-22] MEDS ORDERED: Atropine Sulfate 1 mg/10 ml Syringe ONE (18:35)
[2024-07-22] MEDS ORDERED: Nitroglycerin 50 MG/250 ML BOT 0 ML ONE (18:35)
[2024-07-22] MEDS ORDERED: PHENYLEPHRINE-NS 100 MCG/ML 10 ML SYRINGE ONE (18:38)
[2024-07-22] MEDS ORDERED: Ketorolac Tromethamine 30 MG (1 mL) VIAL ONE (18:44)
[2024-07-22 22:19] LABS: Troponin I Less than 0.010 ng/mL (< 0.028)
[2024-07-22] MEDS ORDERED: Acetaminophen 325 MG TAB PO PRN (22:29)
[2024-07-22] MEDS ORDERED: traMADol HCl 50 MG TAB PO PRN (22:29)
[2024-07-22] MEDS ORDERED: Senokot S 8.6-50 MG TAB PO PRN (22:29)
[2024-07-22] MEDS ORDERED: Ondansetron PF 4 MG/2 ML Vial IVP PRN (22:29)
[2024-07-22] MEDS ORDERED: Nitroglycerin 0.4 MG TAB (25 Tab Bottle) SL PRN (22:32)
[2024-07-22] MEDS ORDERED: Famotidine 20 MG TAB ONE (22:52)
[2024-07-22] MEDS ORDERED: Famotidine/PF 20 mg/2ml Vial ONE (22:54)
[2024-07-22 23:04] LABS: ALT (SGPT) 17 U/L (8-55); AST (SGOT) 20 U/L (5-34); Albumin 3.8 g/dL (3.4-4.8); Alkaline Phosphatase 79 U/L (40-110); Anion Gap 13 mmol/L (10-20); BUN (Urea Nitrogen) 10 mg/dL (9.8-20.1); Bilirubin, Total 0.4 mg/dL (0.2-1.2); CK (CPK) 24 U/L (29-168); Calc. Creatinine Clearance 0 mL/min (70-130); Calcium 9.5 mg/dL (7.8-10.44); Carbon Dioxide 23 mmol/L (23-31); Chloride 107 mmol/L (98-107); Estimated GFR 78; Globulin 2.9 g/dL (2.4-3.5); Glucose 107 mg/dL (80-115); Potassium 3.5 mmol/L (3.5-5.1); Protein, Total 6.7 g/dL (5.8-8.1); Sodium 139 mmol/L (136-145)
[2024-07-22 23:06] LABS: Troponin I Less than 0.010 ng/mL (< 0.028)
[2024-07-22 23:11] LABS: #Basophils Less than 0.03 10x3/uL (0.0-0.2); %Basophils 0.1 % (0.0-1.0); %Eosinophils 0.8 % (0.0-10.0); %Monocytes 10.1 % (0.0-10.0); %Neutrophils 56.5 % (42.0-75.0); Hematocrit 42.8 % (36.0-47.0); Hemoglobin 14.5 g/dL (12.0-16.0); Mean Corpuscular HGB CONC 33.9 g/dL (32.0-36.0); Mean Corpuscular Hemoglobin 32.4 pg (27.0-31.0); Mean Corpuscular Volume 95.5 fL (78.0-98.0); Mean Platelet Volume 9.9 fL (7.4-10.4); PTT 30.3 sec (22.9-36.1); Platelet Count 347 10x3/uL (130-400); Prothrombin Time 12.9 sec (12.0-14.7); RBC Distribution Width 12.2 % (11.5-14.5); Red Blood Cell (RBC) Count 4.48 mill/uL (4.20-5.40)
[2024-07-22 23:21] LABS: D-Dimer Test Less than 0.27 mcg/mL (0.27-0.43)
[2024-07-23 01:13] LABS: Troponin I Less than 0.010 ng/mL (< 0.028)
[2024-07-23] MEDS ORDERED: traMADol HCl 50 MG TAB PO PRN (02:03)
[2024-07-23] MEDS ORDERED: Nitroglycerin 0.4 MG TAB (25 Tab Bottle) SL PRN (02:05)
[2024-07-23] MEDS ORDERED: Zolpidem Tartrate 5 MG TAB PO PRN (02:05)
[2024-07-23] MEDS: Acetaminophen 325 MG TAB PO PRN (02:08)
[2024-07-23] MEDS: traZODone HCl 50 MG TAB PO SCH (02:09)
[2024-07-23] MEDS ORDERED: Senokot 8.6 MG TAB PO PRN (02:15)
[2024-07-23] MEDS ORDERED: Ondansetron PF 4 MG/2 ML Vial SLOW IVP PRN (02:15)
[2024-07-23 05:19] LABS: #Basophils Less than 0.03 10x3/uL (0.0-0.2); %Basophils 0.3 % (0.0-1.0); %Eosinophils 1.6 % (0.0-10.0); %Lymphocytes 46.1 % (21.0-51.0); %Monocytes 12.3 % (0.0-10.0); %Neutrophils 39.2 % (42.0-75.0); Hematocrit 39.5 % (36.0-47.0); Hemoglobin 13.2 g/dL (12.0-16.0); Mean Corpuscular HGB CONC 33.4 g/dL (32.0-36.0); Mean Corpuscular Hemoglobin 33.1 pg (27.0-31.0); Mean Platelet Volume 9.5 fL (7.4-10.4); Platelet Count 277 10x3/uL (130-400); RBC Distribution Width 12.1 % (11.5-14.5); Red Blood Cell (RBC) Count 3.99 mill/uL (4.20-5.40)
[2024-07-23 06:59] LABS: Anion Gap 14 mmol/L (10-20); BUN (Urea Nitrogen) 11 mg/dL (9.8-20.1); Calc. Creatinine Clearance 0 mL/min (70-130); Calcium 9.1 mg/dL (7.8-10.44); Carbon Dioxide 17 mmol/L (23-31); Chloride 112 mmol/L (98-107); Estimated GFR 94; Glucose 79 mg/dL (80-115); Potassium 3.9 mmol/L (3.5-5.1); Sodium 139 mmol/L (136-145)
[2024-07-23] MEDS ORDERED: Famotidine 20 MG TAB PO SCH (09:00)
[2024-07-23] MEDS ORDERED: Aspirin 81 mg Enteric Coated Tablet PO SCH (09:00)
[2024-07-23] MEDS ORDERED: Heparin 5,000 UNITS/ML VIAL SC SCH (09:00)
[2024-07-23 09:19] VITALS: BP 100/57; TEMP 97.5
[2024-07-23] MEDS: Famotidine 20 MG TAB PO SCH (13:51)
[2024-07-23] MEDS: Aspirin 81 mg Enteric Coated Tablet PO SCH (13:51)
[2024-07-23] MEDS: Sodium Chloride 0.9% 500 ML IV SCH (14:17)
[2024-07-23] MEDS ORDERED: traZODone HCl 50 MG TAB PO SCH (21:00)
[2024-07-23] MEDS ORDERED: Atorvastatin Calcium 20 MG TAB PO SCH (21:00)
[2024-07-23] MEDS ORDERED: Ipratropium Bromide 0.06% Nasal Inhaler 15ml EA NARE SCH (21:00)
[2024-07-24] MEDS ORDERED: Levothyroxine Sodium 88 MCG TAB PO SCH (06:00)
[2024-07-24] MEDS ORDERED: LEVOTHYROXINE SODIUM 88 MCG PO SCH (09:00)
[2024-07-24] MEDS ORDERED: Raloxifene 60 MG TAB PO SCH (09:00)
== END 2024-07-23 15:48 | disposition home or self-care (01) ==
LOC: ERS 17:47 → OBS 22:11
PROVIDERS: ADMIT Student in an Organized Health Care Education/Training Program; ATTEND Internal Medicine
DX: R07.82 Intercostal pain (principal); I45.10 Unspecified right bundle-branch block; M19.90 Unspecified osteoarthritis, unspecified site; E07.9 Disorder of thyroid, unspecified; E78.2 Mixed hyperlipidemia; I48.0 Paroxysmal atrial fibrillation; K21.9 Gastro-esophageal reflux disease without esophagitis; Z86.718 Personal history of other venous thrombosis and embolism; Z88.2 Allergy status to sulfonamides; Z79.890 Hormone replacement therapy; Z79.899 Other long term (current) drug therapy; Z88.6 Allergy status to analgesic agent; Z98.890 Other specified postprocedural states
CPT/HCPCS: 71045; 80048; 80053; 82550; 83880; 84484 ×3; 85025 ×2; 85379; 85610; 85730; 86850; 86900; 86901; 93005; 94760; 96374; 96375; 99285; G0378 ×3; J1885; J3490; 36415; J0171; J0461; J1644

== ENCOUNTER 2024-08-05 09:37 | Outpatient (CLI) | payer MEDICARE | END 2024-08-05 09:38 | disposition home or self-care (01) | LOC: BICCT 09:37 | PROVIDERS: ATTEND Family Medicine | DX: R91.8 Other nonspecific abnormal finding of lung field (principal) | CPT/HCPCS: 71260 ==

== ENCOUNTER 2025-05-10 08:09 | Outpatient (CLI) | payer MEDICARE | END 2025-05-10 08:10 | disposition home or self-care (01) | LOC: BICCT 08:09 | PROVIDERS: ATTEND Internal Medicine Critical Care Medicine | DX: R91.8 Other nonspecific abnormal finding of lung field (principal) | CPT/HCPCS: 71250 ==

== ENCOUNTER 2025-06-30 10:41 | Outpatient (CLI) | payer MEDICARE | END 2025-06-30 10:42 | disposition home or self-care (01) | LOC: BICMAMMO 10:41 | PROVIDERS: ATTEND Family Medicine | DX: Z12.31 Encounter for screening mammogram for malignant neoplasm of breast (principal); Z80.3 Family history of malignant neoplasm of breast; Z91.89 Other specified personal risk factors, not elsewhere classified | CPT/HCPCS: 77063; 77067 ==